=== PATIENT | male | born 1955 | race Caucasian/White ===

== ENCOUNTER 2016-07-24 08:49 | Emergency (ER) | payer MEDICARE, OTHER ==
[2016-07-24] MEDS ORDERED: ASPIRIN 81 MG CHEW TAB ONE (09:09)
== END 2016-07-24 13:55 | disposition home or self-care (01) ==
LOC: ER 08:49
CPT/HCPCS: 36415; 71010; 80053; 82550; 83735; 84484; 85025; 85610; 85730; 93005

== ENCOUNTER 2016-08-02 09:29 | Emergency (ER) | payer MEDICARE, OTHER | END 2016-08-02 13:07 | disposition home or self-care (01) | LOC: ER 09:29 | DX: R00.2 Palpitations (principal); J44.0 Chronic obstructive pulmonary disease with (acute) lower respiratory infection; J20.9 Acute bronchitis, unspecified; J44.1 Chronic obstructive pulmonary disease with (acute) exacerbation; F17.200 Nicotine dependence, unspecified, uncomplicated; H65.03 Acute serous otitis media, bilateral; E83.42 Hypomagnesemia; I10 Essential (primary) hypertension; R06.00 Dyspnea, unspecified; R07.9 Chest pain, unspecified | CPT/HCPCS: 36415; 71010; 80053; 81003; 82550; 82553; 83735; 83880; 84439; 84443; 84484; 85025; 85379; 85610; 85730; 87804; 93005; 99284; G0479; 80307 ==